=== PATIENT | female | born 1955 | race Caucasian/White ===

== ENCOUNTER → 2017-08-29 | Outpatient (CLI) | payer MEDICAID | LOC: FIMAGING 08:53 | PROVIDERS: ATTEND Specialist | DX: N20.0 Calculus of kidney (principal) ==

== ENCOUNTER → 2017-11-19 | Outpatient (CLI) | payer MEDICAID | LOC: FIMAGING 13:03 | PROVIDERS: ATTEND Specialist | DX: R93.421 Abnormal radiologic findings on diagnostic imaging of right kidney (principal); R93.422 Abnormal radiologic findings on diagnostic imaging of left kidney ==

== ENCOUNTER 2017-11-27 08:38 | Inpatient (IN) | payer MEDICAID ==
[~2017-11-27 08:38] MED LIST: ALTEPLASE 2 MG VIAL IVP PRN; DEXMEDETOMIDINE IN 0.9 % NACL 50 ML IV ONE; DEXMEDETOMIDINE IN 0.9 % NACL 50 ML IV SCH; FLUMAZENIL 0.5 MG/5 ML MDV IVP PRN; GLUCAGON HCL 1 MG VIAL IVP PRN; HEPARIN 10,000 UNIT/10 ML MDV (1,000 UNIT/ML) IVP PRN; MEPERIDINE 25 MG/ML SYR IVP PRN; MIDAZOLAM 2 MG/2 ML VIAL IVP PRN; NALOXONE HCL 0.4 MG/ML INJ IVP PRN; NS 1,000 ML IV SCH; PROTAMINE SULFATE 50 MG/5 ML VIAL IVP PRN; cefTRIAXone 1 GM in STERILE WATER INJ 10 ML IV ONE; fentaNYL 100 MCG/2 ML INJ IVP PRN
--- NOTE | 2017-11-27 09:28 | PDGENHP ---
History & Physical Chief Complaint: LT RENAL STONES History of Present Illness: INTERVAL GROWTH OF MULTIIPLE KIDNEY STONES Pertinent Past, Social, Family History: RHINOPLASTY, LAP CHOLY, CARDIOMYOPATHY; NONSMOKER; Relevant Physical Exam: KNEE ARTHRITIS, RT GROIN AND LEG PAIN Cardiorespiratory Assessment: RRR, CTA
--- NOTE | 2017-11-27 09:30 | PDPROPOC ---
Sedation Plan of Care Sedation Plan of Care: vital signs stable, mental status noted, patient educated of risks, benefits, alternatives, patient can tolerate sedation ASA Classification: ASA 2 Planned drugs: fentanyl, midazolam Mallampati Score: Class 2 Mallampati Reference Image: Patient passed 3-3-2 rule?: Yes
[2017-11-27] MEDS ORDERED: MIDAZOLAM 2 MG/2 ML VIAL ONE (10:09)
[2017-11-27] MEDS ORDERED: fentaNYL 100 MCG/2 ML INJ ONE (10:09)
[2017-11-27] MEDS ORDERED: IOPAMIDOL (ISOVUE-300) 100 ML BTL ONE (10:47)
[2017-11-27] MEDS ORDERED: LIDOCAINE 1% 300 MG/30 ML SDV ONE (10:47)
[2017-11-27] MEDS ORDERED: ONDANSETRON 4 MG/2 ML VIAL IVP PRN (11:21)
[2017-11-27] MEDS ORDERED: ACETAMINOPHEN 325 MG TAB PO PRN (11:21)
--- NOTE | 2017-11-27 11:34 | PDRADPN ---
Radiology Procedure Note Date of Procedure: 11/27/17 Radiologist: Natalie Silver Anesthesia: IV Sedation Pre-op Diagnosis: LT RENAL CALCULUS Post-op Diagnosis: SAME Indication: PAIN AND HEMATURIA Procedure: PERC NEPH ACCESS PRE-OP X 2 Finding(s): SEE REPORT Inf/Abcess present in the surg proc area at time of surgery?: No Drains: Nephrostomy (8 FR X 2)
[2017-11-27] MEDS ORDERED: OXYCODONE/APAP 5/325 TAB ONE (12:43)
[2017-11-27] MEDS: OXYCODONE/APAP 5/325 TAB PO PRN ×3 (12:44→21:09)
[2017-11-27] MEDS ORDERED: NS 1,000 ML IV SCH (15:30)
[2017-11-27] MEDS ORDERED: ZOLPIDEM TARTRATE 5 MG TAB PO PRN (16:20)
[2017-11-27] MEDS ORDERED: LORazepam 0.5 MG TAB PO PRN (16:20)
[2017-11-27] MEDS ORDERED: POLYETHYLENE GLYCOL 3350 17 GM PKT PO PRN (16:38)
[2017-11-27] MEDS ORDERED: BISACODYL 10 MG SUPP PR PRN (16:38)
[2017-11-27] MEDS ORDERED: LACTULOSE 20 GM/30 ML UDCUP PO PRN (16:38)
[2017-11-27] MEDS ORDERED: MAGNESIUM HYDROXIDE 30 ML UDCUP PO PRN (16:38)
--- NOTE | 2017-11-27 18:23 | PDGENHP ---
History and Physical - Chief Complaint Acute flank pain - History of Present Illness Primary care provider: Dr. Jensen Primary urologist: Dr. Abebe Nathan HPI: 62-year-old female presenting with acute flank pain characterized as a sharp pain located in the left flank radiating into the left shoulder and bilateral legs, it is been associated with hematuria. Onset of symptoms was 2 months ago, and duration has been intermittent thereafter, but with escalation over the past 1 week. The patient has seen Urology in outpatient setting, and a scheduled percutaneous nephrostomy with subsequent cystoscopy have been planned. On the days leading up to the percutaneous nephrostomy, the patient had been utilizing as needed Percocet, and this had been somewhat alleviating the pain. On the day of presentation, the patient had run out of medication, she was in tears prior to the procedure, and she underwent the percutaneous nephrostomy with Dr. Silver, experiencing some postprocedural hypotension, but most notably postprocedural severe pain. The patient has subsequently received as needed Percocet and this has somewhat alleviated the pain. History Information - Allergies/Home Medication List Allergies/Adverse Reactions: No Known Allergies Allergy (Verified 11/20/17 13:55) Home Medications: Carvedilol [Coreg (*)] 1 tab PO BIDMEAL 11/20/17 [Last Taken 11/27/17 06:00] Lisinopril [Zestril 5 mg (*)] 10 mg PO DAILY 11/20/17 [Last Taken 11/27/17] oxyCODONE/APAP 5/325 [Percocet 5/325 (*)] 1 tab PO Q6H PRN 11/20/17 [Last Taken 11/27/17 09:00] celeCOXIB [CeleBREX] 100 mg PO BID 11/27/17 [Last Taken 11/27/17 06:00] I have personally reviewed and updated: family history, medical history, social history, surgical history - Past Medical History Additional medical history: Nephrolithiasis. Hypertension. Hyperlipidemia. Cholelithiasis. Bilateral osteoarthritis in the knees. Takotsubo cardiomyopathy with chronic systolic congestive heart failure, ejection fraction as low as 20%, reportedly normalized on most recent echocardiogram in fall - Surgical History Additional surgical history: Percutaneous nephrostomy tube on 11/27/2017. Rhinoplasty. Cholecystectomy - Family History Additional family history: Mother with DVT, coronary artery disease - Social History Smoking Status: Never smoked Alcohol Use: None Drug Use: None Additional social history: Independent in her ADLs Review of Systems Review of Systems: ROS: 10pt was reviewed & negative except for what was stated in HPI & below Genitourinary: Reports: hematuria, other (Flank pain) Muscolosketal: Reports: other (Bilateral knee pain) Physical Exam Physical Exam: Temp Pulse Resp BP Pulse Ox 36.7 C 68 12 121/70 H 92 11/27/17 16:51 11/27/17 16:51 11/27/17 16:51 11/27/17 16:51 11/27/17 16:51 O2 (L/minute) 1 Constitutional: no apparent distress, appears nourished, not in pain, uncomfortable Eyes: PERRL, anicteric sclera, EOMI Ears, Nose, Mouth, Throat: moist mucous membranes, hearing normal, ears appear normal, no oral mucosal ulcers Cardiovascular: regular rate and rhythym, no murmur, rub, or gallop, No edema Respiratory: no respiratory distress, no rales or rhonchi, clear to auscultation Gastrointestinal: normoactive bowel sounds, soft, non-tender abdomen, no palpable masses Genitourinary: other (Percutaneous nephrostomy tube in place, pink-colored urine ) Skin: other (No erythema or ecchymoses surrounding the left flank percutaneous nephrostomy site) Musculoskeletal: other (No pain elicited in the bilateral hips with active leg flexion, no tenderness in the bilateral inguinal areas) Neurologic: AAOx3, sensation intact bilaterally, No weakness, No facial droop Psychiatric: interacting appropriately, not anxious, not encephalopathic, thought process linear Assessment & Plan Assessment: 62-year-old female presents with acute flank pain in the setting of nephrolithiasis requiring percutaneous nephrostomy tube and cystoscopy Plan: 1. Nephrolithiasis. Resulting in acute pain, new problem this provider, further workup is indicated. The patient's pain was uncontrolled postprocedure Stephon, and Dr. Silver has requested the patient receive ongoing pain management until her cystoscopy in the a.m. -the patient will be NPO after midnight, received cystoscopy tomorrow a.m., and stone will likely be sent for analysis -get preprocedural labs including BMP, coags, CBC -ongoing pain management with Percocet, as needed IV morphine -bowel regimen ordered -patient will require oral pain management after her procedure tomorrow to be prescribed at discharge 2. Chronic systolic congestive heart failure. No evidence of acute exacerbation , reviewed outside records including 07/10/[address] Hira Tijerina, characterizing patient's Takotsubo cardiomyopathy, beginning with an ejection fraction 25-30%, improving to 35-40% with optimal medical management including ABEL-inhibitor, beta-mya, aspirin, statin, and undergoing cardiac catheterization which demonstrated only mild coronary artery disease -the patient reports that her cardiomyopathy is completely resolved per echocardiogram in fall -she continues on ABEL-inhibitor and beta-mya, will hold ABEL-inhibitor given her postprocedure hypotension today and continue the beta-mya 3. Hypertension. Postprocedural, initiated on IV fluids, continue on supplemental IV fluids, hold ABEL-inhibitor, continue to monitor Diet. Regular, NPO after midnight prophylaxis. Moderate risk patient, SCDs, hold pharm given procedure tomorrow Code. Full Disposition. Anticipated discharge 11/28, following her procedure tomorrow, given no complications. I have discussed patient's reason for presentation with Dr. Natalie Silver, hospital Medicine will be the primary service, and we will be responsible for the patient 's discharge tomorrow following her cystoscopy if there are no complications.
[2017-11-27] MEDS: SENNOSIDES/DOCUSATE SODIUM TAB PO SCH (21:07)
[2017-11-27] MEDS: CARVEDILOL 3.125 MG TAB PO SCH (21:08)
[2017-11-28] MEDS: OXYCODONE/APAP 5/325 TAB PO PRN ×3 (00:36→22:09)
[2017-11-28 05:42] LABS: PLATELET COUNT 165 10^3/uL (150-400)
[2017-11-28 05:51] LABS: INR 1.18 (0.83-1.16); PROTIME(PATIENT) 15.2 SEC (12.0-15.0)
[2017-11-28] MEDS ORDERED: IOPAMIDOL (ISOVUE-300) 100 ML BTL ONE (08:14)
[2017-11-28] MEDS ORDERED: MINERAL OIL 10 ML VIAL ONE (08:15)
--- NOTE | 2017-11-28 08:16 | HOSPPROG ---
Hospitalist Progress Note Assessment/Plan: #Large left kidney stone -s/p nephrostomy tube: IR to remove next Tues #Acute pain: do to above. #Nausea: IV antimetics #Compensated systolic HF: BB, restart ACEI when BP improves #Leg cramps: electrolytes ok. IV hydration #Diet: regular #Disp: warrants inpatient admission for ongoing pain control. Can DC in morning Subjective: left flank pain Objective: Vital Signs Temp Pulse Resp BP Pulse Ox 36.9 C 63 16 135/77 H 94 11/28/17 08:14 11/28/17 08:14 11/28/17 08:14 11/28/17 08:14 11/28/17 08:14 Laboratory Results 11/28/17 04:23 11/28/17 04:23 11/27/17 11/28/17 11/29/17 05:59 05:59 05:59 Intake Total 2550 Output Total 525 310 Balance 5 -310 PT 15.2 SEC (12.0-15.0) H 11/28/17 04:23 INR 1.18 (0.83-1.16) H 11/28/17 04:23 - Physical Exam Constitutional: other (groggy from sedation) Eyes: PERRL Ears, Nose, Mouth, Throat: moist mucous membranes Cardiovascular: regular rate and rhythym Respiratory: no respiratory distress, no rales or rhonchi Gastrointestinal: normoactive bowel sounds, soft, non-tender abdomen Genitourinary: other (left nephrostomy tube) Skin: warm Musculoskeletal: full muscle strength Neurologic: AAOx3, CN II-XII Intact ICD10 Worksheet Patient Problems: Problems Problem Status Onset Renal calculus, left Acute Cardiomyopathy Acute
[2017-11-28] MEDS: CARVEDILOL 3.125 MG TAB PO SCH ×2 (08:22→18:06)
[2017-11-28] MEDS ORDERED: cefTRIAXone 1 GM in STERILE WATER INJ 10 ML IV ONE (08:30)
[2017-11-28] MEDS ORDERED: IOPAMIDOL (ISOVUE-M 300) 15 ML VIAL ONE (08:38)
[2017-11-28] MEDS: SENNOSIDES/DOCUSATE SODIUM TAB PO SCH ×2 (08:40→20:14)
[2017-11-28] MEDS ORDERED: LR 1,000 ML IV ONE (08:49)
[2017-11-28] MEDS ORDERED: LISINOPRIL 5 MG TAB PO SCH (09:00)
[2017-11-28] MEDS ORDERED: PROPOFOL 200 MG/20 ML VIAL ONE (09:06)
[2017-11-28] MEDS ORDERED: ROCURONIUM 50 MG/5 ML VIAL ONE (09:07)
[2017-11-28] MEDS ORDERED: DEXAMETHASONE 4 MG/ML VIAL ONE (09:07)
[2017-11-28] MEDS ORDERED: LIDOCAINE 2% 5 ML SDV ONE (09:07)
[2017-11-28] MEDS ORDERED: ONDANSETRON 4 MG/2 ML VIAL ONE (09:07)
[2017-11-28] MEDS ORDERED: MIDAZOLAM 2 MG/2 ML VIAL IVP ONE (09:08)
--- NOTE | 2017-11-28 09:11 | PDANEPAE ---
ANE Past Medical History - Cardiovascular History Hx Hypertension: Yes Hx Arrhythmias: No Hx Chest Pain: No Hx Coronary Artery / Peripheral Vascular Disease: No Hx CHF / Valvular Disease: No Hx Palpitations: No Cardiovascular History Comment: STRESS INDUCED CARDIOMYOPATHY ([place]) in 2014 - Pulmonary History Hx COPD: No Hx Asthma/Reactive Airway Disease: No Hx Recent Upper Respiratory Infection: No Hx Oxygen in Use at Home: No Hx Sleep Apnea: No Sleep Apnea Screening Result - Last Documented: Positive - Neurologic History Hx Cerebrovascular Accident: No Hx Seizures: No Hx Dementia: No - Endocrine History Hx Diabetes: No - Renal History Hx Renal Disorders: Yes Renal History Comment: Kidney stone (1 1/4 inch) - Liver History Hx Hepatic Disorders: No Hepatic History Comment: GALL STONES - Neurological & Psychiatric Hx Hx Neurological and Psychiatric Disorders: No - Cancer History Hx Cancer: No - Congenital Disorder History Hx Congenital Disorders: No - GI History Hx Gastrointestinal Disorders: No - Other Health History Other Health History: RT LOWER EXT WEAKNESS. LT KNEE DISCOMFORT. ARTHRITIS to bilateral knees - Chronic Pain History Chronic Pain: Yes - Surgical History Prior Surgeries: RHINOPLASTY. lap Cholecystectomy 08/2015 ANE Review of Systems Review of Systems: - Exercise capacity METS (RN): 4 METS ANE Patient History - Allergies Allergies/Adverse Reactions: No Known Allergies Allergy (Verified 11/20/17 13:55) - Home Medications Home Medications: Carvedilol [Coreg (*)] 1 tab PO BIDMEAL 11/20/17 [Last Taken 11/27/17 06:00] Lisinopril [Zestril 5 mg (*)] 10 mg PO DAILY 11/20/17 [Last Taken 11/27/17] oxyCODONE/APAP 5/325 [Percocet 5/325 (*)] 1 tab PO Q6H PRN 11/20/17 [Last Taken 11/27/17 09:00] celeCOXIB [CeleBREX] 100 mg PO BID 11/27/17 [Last Taken 11/27/17 06:00] - NPO status NPO Since - Liquids (Date): 11/27/17 NPO Since - Liquids (Time): 23:00 NPO Since - Solids (Date): 11/27/17 NPO Since - Solids (Time): 21:30 - Anes Hx Anes Hx: no prior problems - Smoking Hx Smoking Status: Never smoked - Alcohol Use Alcohol Use: None - Family Anes Hx Family Hx Anesthesia Complications: none ANE Labs/Vital Signs - Labs Result Diagrams: 11/28/17 04:23 11/28/17 04:23 - Vital Signs Blood Pressure: 137/88 Heart Rate: 63 Respiratory Rate: 16 O2 Sat (%): 93 Height: 172.72 cm Weight: 108 kg ANE Physical Exam - Airway Neck exam: FROM Mallampati Score: Class 3 Mouth exam: normal dental/mouth exam - Pulmonary Pulmonary: no respiratory distress, no rales or rhonchi, clear to auscultation - Cardiovascular Cardiovascular: regular rate and rhythym, no murmur, rub, or gallop - ASA Status ASA Status: III ANE Anesthesia Plan Anesthesia Plan: general endotracheal anesthesia
--- NOTE | 2017-11-28 10:15 | ASMTCMCOM ---
CM Note CM Note Notes: Antiucipate pt will discharge with no needs when medically ready. Date Signed: 11/28/2017 10:15 AM Electronically Signed By:Carmen Rodriguez LCSW
--- NOTE | 2017-11-28 10:38 | POSTOPPROG ---
Post Op Note Date of Operation: 11/28/17 Surgeon: Andrew Nathan (# [id number]) Anesthesia: GET(General Endotracheal) Pre-op Diagnosis: Large volume left nephrolithiasis (~ 5 cm) Post-op Diagnosis: Large volume left nephrolithiasis (~ 5 cm) Procedure: Cysto, left RGP, left ureteral balloon occlusion, PCNL w/fluoro guidance >1 Findings: See op note Inf/Abcess present in the surg proc area at time of surgery?: No EBL: 50-100 (100 cc) Complications: None Drains: Nephrostomy (14 Fr. left) Specimen(s): Left renal calculus fragments Text Box - Additional Text Additional Text: She will need transferred back to floor for pain control and routine flushing of nephrostomy tube. Arrangements will need to be made for outpatient nephrostogram and tube removal in IR for next Saturday.
[2017-11-28] MEDS ORDERED: PHENYLEPHRINE HCL 100 MCG/ML SYR ONE (10:40)
[2017-11-28] MEDS ORDERED: LR 500 ML IV PRN (12:58)
[2017-11-28] MEDS ORDERED: fentaNYL 100 MCG/2 ML INJ IVP PRN (12:58)
[2017-11-28] MEDS ORDERED: ONDANSETRON 4 MG/2 ML VIAL IVP PRN (12:58)
[2017-11-28] MEDS ORDERED: DEXAMETHASONE 4 MG/ML VIAL IVP PRN (12:58)
[2017-11-28] MEDS ORDERED: NALOXONE HCL 0.4 MG/ML INJ IVP PRN (12:58)
[2017-11-28] MEDS ORDERED: PROMETHAZINE HCL 25 MG/ML INJ IVP PRN (12:58)
[2017-11-28] MEDS ORDERED: MEPERIDINE 25 MG/ML SYR IVP PRN (12:58)
[2017-11-28] MEDS ORDERED: HYDROCODONE/APAP 5/325 TAB PO PRN (12:58)
--- NOTE | 2017-11-28 13:08 | POSTANESTH ---
Post Anesthetic Evaluation Cardiovascular Status: Normal, Stable, Similar to Pre-Op Cond Respiratory Status: Normal, Stable, Similar to Pre-op Cond. Level of Consciousness/Mental Status: Can Participate in Eval, Mildly Sleepy, Arousable Pain Control: Adequate, Prn Tx Ordered Nausea/Vomiting Control: Adequate, Prn Tx Ordered Complications Possibly Related to Anesthesia: None Noted
--- NOTE | 2017-11-28 14:24 | GOP ---
[f rep st] OPERATIVE REPORT DATE OF OPERATION: 11/28/2017 SURGEON: Andrew Nathan MD ANESTHESIA: General endotracheal. PREOPERATIVE DIAGNOSIS: Large volume left nephrolithiasis (approximately 5 cm). POSTOPERATIVE DIAGNOSIS: Large volume left nephrolithiasis (approximately 5 cm). PROCEDURE PERFORMED: 1. Cystourethroscopy. 2. Left retrograde pyelography with ureteral balloon occlusion catheter placement. 3. Left percutaneous nephrostolithotomy with fluoroscopic guidance greater than 1 hour. 4. Left-sided nephrostomy tube placement. FINDINGS: Large volume left nephrolithiasis as detailed in the body of the operative report. SPECIMENS: Left renal calculus fragments. ESTIMATED BLOOD LOSS: Approximately 100 cc. INDICATIONS: This woman presented to the office last year with a large left renal pelvic calculus th at measured approximately 3 cm with some scattered left lower pole calculi otherwise noted. The ayse ent initially decided to attempt to have her surgery done elsewhere, and was lost to follow up for ap proximately 2 months. She then returned and desired to have her surgery done here. She subsequently underwent left-sided nephrostomy tube placement in interventional radiology yesterday. She had a fa ir amount of pain afterwards, and was admitted for pain control thereafter. She presents for definit gita operative management of her left nephrolithiasis at this time. The indications for the procedure s as well as potential risks and complications were discussed with the patient preoperatively. She a ppeared to understand, her questions were answered, and she wished to proceed. Written informed surg ical consent was thereafter obtained. DESCRIPTION OF PROCEDURE: The patient was brought to the operating room and administered a general e ndotracheal anesthesia. An orogastric tube was placed by Anesthesia and removed at the conclusion of the case. She was placed in the dorsal lithotomy position utilizing Roger stirrups. The genital ar ea was sterilely prepped with Betadine scrub and paint, then draped in usual sterile fashion. Cystos copy was performed with a 30-degree lens through a 22-Scottish sheath. Urethra and bladder were unrema rkable. Ureteral orifices were normal in regard to shape and position along the trigone. A 5-Scottish open-ended ureteral catheter was used to perform retrograde pyelography on the left side. This reve aled no obvious filling defects of the ureter with C-arm fluoroscopic imaging. The renal pelvis was occupied by a large calculus. Previously placed left upper pole nephrostomy tube was noted within a peripheral calyx. Another nephrostomy tube that was placed yesterday in the lower pole did not appea r to be in continuity with the renal collecting system. I then advanced the ureteral catheter to the ureteropelvic junction. A superstiff Amplatz guidewire was then advanced through the ureteral bill ter and into the renal collecting system as noted fluoroscopically. The ureteral catheter and cystos cope were then removed while keeping the guidewire in place. An 8.5-Scottish balloon occlusion cathete r was advanced over the guidewire until the balloon was positioned at the ureteropelvic junction, jus t distal to the position of the large renal pelvic calculus. Approximately 2 cc of contrast material was used to inflate the balloon at this location. A 16-Scottish Dunaway catheter was then inserted, and Steri-Strips were used to secure the balloon occlusion catheter to the Dunaway. This completed the cy stoscopic portion of the procedure. The patient was then taken out of dorsal lithotomy position. She was carefully transferred in the pr one position. All appropriate pressure points were padded. The left back area was then sterilely pr epped and draped in standard fashion. Dr. Ng with Interventional Radiology then proceeded to di late the nephrostomy tract, utilizing the upper pole access, and placed a working nephroscopic sheath at this location. I then used a rigid nephroscope to identify the collecting system anatomy. The l arge left renal pelvic calculus could be seen. Ultrasonic lithotripsy was used to fragment this ston e and extract fragments at the same time. I also used a rigid grasping forceps to remove any loose s tone fragments as much as possible. There was some mild disruption to the renal pelvis urothelium wh ich made the procedure somewhat more difficult in terms of visualizing the inferior 1/2 of the large left renal pelvic calculus. I was ultimately able to use the rigid nephroscope and the ultrasonic Li thotripter to completely ablate this stone and remove all the fragments as was seen both cystoscopica lly and fluoroscopically. The grasping forceps were also utilized through the nephroscope to remove any remaining fragments that were visualized within the renal pelvis. I then turned my attention to try to identify the location of the left lower pole calculi. I was wendy ble to do this with the rigid nephroscope. Therefore, the flexible cystoscope was brought onto the f ie and utilized to access a lower pole calyx where there were multiple, very small renal calculi id entified. I was able to flush the majority of these out utilizing the rigid nephroscope. They prima rily ultimately flushed out through the working nephroscopic sheath and out of the patient. There we re a few slightly large dominant fragments remaining which were then ablated with a 275 micron holmiu m laser fiber. I also used a ZeroTip Nitinol stone basket to extract any other remaining sizable milagros culi from the lower pole. At the conclusion of procedure, there did not appear to be any remaining c alculi in that lower pole calyx. No other calculi could be seen on fluoroscopic nor nephroscopic julia luation. At this point I decided to complete the procedure. The guidewire through the working nephr oscopic sheath had fallen out by this point. I used a Kumpe catheter to redirect it into the renal p myla and down the ureter after deflating the balloon occlusion catheter as was noted fluoroscopicall y. The Kumpe was then removed, and a 14-Scottish nephrostomy tube advanced over the guidewire until it was properly positioned within the renal pelvis. The inner stylet was removed, and the pigtail depl oyed. It was confirmed to be in proper position using contrast material and fluoroscopic imaging. T he pigtail was then locked in place, and any remaining guidewires were removed. The catheter was sec ured to the skin with a 2-0 silk suture, and then dressed with a silk dressing followed by Tegaderm and 4 x 4's. The lower pole nephrostomy tube was then removed before the patient awakened. The balloon occlusion catheter was then also completely removed while keeping the 16-Scottish Dunaway i n place. The nephrostomy tube was connected to bag drainage. The patient was then turned back over into the supine position where she was awakened, extubated, transferred to her bed, then taken to the recovery room. She tolerated the procedure well overall. COMPLICATIONS: None. DISPOSITION: She was transferred to the recovery room in stable condition. She will be transferred back to the floor, and will need to stay in the hospital tonight for pain control as well as routine flushing of her nephrostomy tube to prevent clot obstruction. Arrangements made for outpatient antegrade nephrostogram and nephrostomy tube removal through [facility] Rad[facility] next Saturday. /[id number]/MODL
[2017-11-28] MEDS ORDERED: fentaNYL 100 MCG/2 ML INJ ONE (14:33)
[2017-11-29] MEDS: CARVEDILOL 3.125 MG TAB PO SCH (08:01)
[2017-11-29] MEDS: OXYCODONE/APAP 5/325 TAB PO PRN (08:01)
[2017-11-29] MEDS: SENNOSIDES/DOCUSATE SODIUM TAB PO SCH (08:01)
[2017-11-29 08:02] VITALS: PULSE 65
--- NOTE | 2017-11-29 09:56 | PDMN ---
Medical Necessity Medical necessity: Change to IP, as of 11/28/17, per MD; los >2 mn for further monitoring, IV pain meds/antiemetics & IVFs s/p nephrostomy tube placement; hx nephrolithiasis, takotsubo cardiomyopathy w/CHF & htn; per progress note & order 11/28/17
--- NOTE | 2017-11-29 09:59 | ASMTCMCOM ---
CM Note CM Note Notes: Patient has been medically cleared for discharge home with no needs. She with F/u with urology as outpatient. CM available should needs arise. Date Signed: 11/29/2017 09:58 AM Electronically Signed By:Diana Oliva RN
--- NOTE | 2017-11-29 13:58 | GDS ---
[f rep st] DISCHARGE SUMMARY DISCHARGE DIAGNOSIS: 1. Large left kidney stone status post removal and nephrostomy tube placement. 2. Acute pain. 3. Nausea. 4. Compensated systolic heart failure. 5. Leg cramps. HISTORY OF PRESENT ILLNESS: A 62-year-old female with history of takotsubo cardiomyopathy, systolic heart failure who presented with acute left flank pain that was sharp with radiation to shoulder and bilateral legs. She has also noted hematuria. Onset of symptoms with 2 months ago and symptoms have been intermittent since then. She was seen in Urology in the outpatient setting and had a scheduled percutaneous nephrostomy tube with cystoscopy here at this admission. HOSPITAL COURSE: 1. Left nephrolithiasis: Underwent lithotripsy, extraction of stone and nephrostomy tube placement. She is to follow up with Dr. Nathan in 1 month and plan for [facility] removal on Saturday. 2. Compensated systolic heart failure: History of takotsubo. May resume beta mya, ABEL inhibitor. 3. Mild coronary disease: Continue aspirin, statin, beta mya. 4. Hypertension. Resume home medications. 5. Acute flank pain secondary to kidney stone. I provided only a minimal amount of Percocet and she is to proceed with Tylenol and Advil. DISPOSITION: Patient is stable for discharge home. NEW MEDICATIONS: Percocet 5/325 x10. FOLLOWUP: 1. Follow up with Dr. Nathan in 1 month. 2. Follow up with interventional Radiology, 12/03/2017 for nephrostomy removal. 3. Follow up with Cardiology as previously scheduled. PHYSICAL EXAMINATION: GENERAL: Today, in general, patient is well appearing, sitting up in bed eating breakfast. HEENT: PERRLA. EOMI. Oropharynx clear. CV: Regular rate and rhythm. No murmurs, gallops, rubs. No lower extremity edema. LUNGS: Clear to auscultation bilaterally. ABDOMEN: Soft, nontender, nondistended. GENITOURINARY: Left nephrostomy tube in place. NEUROLOGIC: 2 through 12 intact. PSYCHIATRIC: Alert and oriented x3. /[id number]/MODL MTDD
[2017-11-29 14:38] VITALS: BP 144/81; RESP 15; TEMP 98.3; O2SAT 95
== END 2017-11-29 14:58 | disposition home or self-care (01) | DRG 660 ==
LOC: FIMAGING 08:38 → INTOOBSV 15:24 → F1N 15:24 → OBSVTOIN 11-28 15:39
PROVIDERS: ADMIT Radiology Diagnostic Radiology; ATTEND Specialist
PROC: 0TC18ZZ Extirpation of Matter from Left Kidney, Via Natural or Artificial Opening Endoscopic (ICD-10-PCS; principal; 2017-11-28 09:00)
PROC: BT121ZZ Fluoroscopy of Left Kidney using Low Osmolar Contrast (ICD-10-PCS; principal; 2017-11-28 09:00)
PROC: 0T9180Z Drainage of Left Kidney with Drainage Device, Via Natural or Artificial Opening Endoscopic (ICD-10-PCS; principal; 2017-11-28 09:00)
DX: N20.0 Calculus of kidney (principal); I11.0 Hypertensive heart disease with heart failure; I50.22 Chronic systolic (congestive) heart failure; E78.5 Hyperlipidemia, unspecified; R25.2 Cramp and spasm; M17.0 Bilateral primary osteoarthritis of knee; I25.10 Atherosclerotic heart disease of native coronary artery without angina pectoris
CPT/HCPCS: 82365-90; C1729; C1769; J0696; J1100; J1644; J2250; J2270; J2370; J2405; J2704; J3010; Q9967

== ENCOUNTER → 2017-12-03 | Day surgery (SDC) | payer MEDICAID ==
[~2017-12-03] MED LIST changes: -ALTEPLASE 2 MG VIAL IVP PRN; -DEXMEDETOMIDINE IN 0.9 % NACL 50 ML IV ONE; -DEXMEDETOMIDINE IN 0.9 % NACL 50 ML IV SCH; -FLUMAZENIL 0.5 MG/5 ML MDV IVP PRN; -GLUCAGON HCL 1 MG VIAL IVP PRN; -HEPARIN 10,000 UNIT/10 ML MDV (1,000 UNIT/ML) IVP PRN; +IOPAMIDOL (ISOVUE-300) 150 ML BTL ONE; -MEPERIDINE 25 MG/ML SYR IVP PRN; -MIDAZOLAM 2 MG/2 ML VIAL IVP PRN; -NALOXONE HCL 0.4 MG/ML INJ IVP PRN; -NS 1,000 ML IV SCH; -PROTAMINE SULFATE 50 MG/5 ML VIAL IVP PRN; -cefTRIAXone 1 GM in STERILE WATER INJ 10 ML IV ONE; -fentaNYL 100 MCG/2 ML INJ IVP PRN
== END ==
LOC: FIMAGING 15:10
PROVIDERS: ATTEND Physician Assistant Medical
PROC: 3E0K3KZ Introduction of Other Diagnostic Substance into Genitourinary Tract, Percutaneous Approach (ICD-10-PCS; principal; 2017-12-03)
PROC: 0TP5X0Z Removal of Drainage Device from Kidney, External Approach (ICD-10-PCS; principal; 2017-12-03)
DX: Z43.6 Encounter for attention to other artificial openings of urinary tract (principal); R93.8 Abnormal findings on diagnostic imaging of other specified body structures
CPT/HCPCS: 50389; 74425; C1769; Q9967